=== PATIENT | female | born 1955 | race Asian ===

== ENCOUNTER → 2019-02-03 11:30 | Outpatient (CLI) | payer OTHER, SELFPAY ==
--- NOTE | 2019-02-03 | DI.MG.S_ITS ---
BILATERAL DIGITAL SCREENING MAMMOGRAM 3D/2D WITH CAD POST LUMPECTOMY: 02/03/2019 CLINICAL: Routine screening. Personal history of right breast cancer. Family history of breast cancer. Comparison is made to exams dated: 07/21/2017 mammogram, 07/08/2016 mammogram, and 07/03/2015 mammogram - [facility]. The tissue of both breasts is heterogeneously dense. This may lower the sensitivity of mammography. Current study was also evaluated with a Computer Aided Detection (CAD) system. There are benign post operative findings in the right breast. No significant masses, calcifications, or other findings are seen in either breast. There has been no significant interval change. IMPRESSION: There is no mammographic evidence of malignancy. A 1 year screening mammogram is recommended. This exam was interpreted at Station ID: [id number]. NOTE: For mammograms, a report in lay terms will be sent to the patient. Approximately 15% of breast malignancies will not be visualized mammographically. In the management of a palpable breast mass, a negative mammogram must not discourage biopsy of a clinically suspicious lesion. Electronically Signed By: Livia winston/karli:02/03/2019 13:34:15 letter sent: Normal Exam ACR BI-RADS Category 2: Benign Finding(s) 3342F
== END ==
PROVIDERS: Visit Provider Family Medicine
DX: Z12.31 Encounter for screening mammogram for malignant neoplasm of breast (principal); Z85.3 Personal history of malignant neoplasm of breast; Z80.3 Family history of malignant neoplasm of breast
CPT/HCPCS: 77063; 77067

== ENCOUNTER → 2020-05-30 11:49 | Outpatient (CLI) | payer OTHER, SELFPAY ==
--- NOTE | 2020-05-30 | DI.MG.S_ITS ---
BILATERAL DIGITAL SCREENING MAMMOGRAM 3D/2D WITH CAD POST LUMPECTOMY: 05/30/2020 CLINICAL: Routine screening. Personal history of left breast cancer. Family history of breast cancer. Comparison is made to exams dated: 02/03/2019 mammogram, 07/21/2017 mammogram, and 07/08/2016 mammogram - [facility]. The tissue of both breasts is heterogeneously dense. This may lower the sensitivity of mammography. Current study was also evaluated with a Computer Aided Detection (CAD) system. There are benign post operative findings in the right breast. No significant masses, calcifications, or other findings are seen in either breast. There has been no significant interval change. IMPRESSION: BENIGN There is no mammographic evidence of malignancy. A 1 year screening mammogram is recommended. This exam was interpreted at Station ID: [id number]. NOTE: For mammograms, a report in lay terms will be sent to the patient. Approximately 15% of breast malignancies will not be visualized mammographically. In the management of a palpable breast mass, a negative mammogram must not discourage biopsy of a clinically suspicious lesion. Electronically Signed By: Colby Francois acr/penrad:05/30/2020 12:44:59 letter sent: Normal Exam ACR BI-RADS Category 2: Benign Finding(s) 3342F
== END ==
PROVIDERS: Referring Provider Family Medicine; Visit Provider Family Medicine
DX: Z12.31 Encounter for screening mammogram for malignant neoplasm of breast (principal); Z85.3 Personal history of malignant neoplasm of breast; Z80.3 Family history of malignant neoplasm of breast
CPT/HCPCS: 77063; 77067

== ENCOUNTER → 2020-10-17 08:56 | Outpatient (CLI) | payer OTHER, SELFPAY ==
--- NOTE | 2020-10-17 08:58 | DI.MRI.S_ITS ---
PROCEDURE: MR ABDOMEN WO/W CON INDICATIONS: Other specified disorders of kidney and ureter TECHNIQUE: Coronal HASTE through abdomen and pelvis; axial 2D FLASH in- and [id number] (with and without fat saturation), and breath-hold T2 FSE from the hepatic dome to the bottom of the kidneys. Coronal HASTE MR urogram of kidneys and bladder. Dynamic coronal VIBE during IV gadolinium administration; postgadolinium axial VIBE or 2D FLASH with fat saturation from the hepatic dome through the kidneys. COMPARISON: Outside Film, CT, CT ABDOMEN RENAL PROTOCOL, 02/10/2019, 12:55. Outside Film, US, US RENAL COMPLETE, 08/05/2020, 9:28. Outside Film, CT, CT ABDOMEN RENAL PROTOCOL, 09/02/2020, 11:01. FINDINGS: Image quality: Excellent. Genitourinary system: There is an exophytic mass arising from the lateral aspect of the right kidney measuring 2.6 x 2.2 x 2.0 cm on series 14, image 53 and series 17, image 40. This demonstrates slightly heterogeneous predominantly hypointense signal on T2 and isointense to slightly hypointense signal on T1. There is internal enhancement following contrast administration. This appears similar in size compared to the prior CT of 02/10/2019 on which it measured approximately 2.5 x 2.1 x 1.9 cm. The mass demonstrates no definite adjacent organ invasion. No evidence of renal vein invasion. No additional renal mass lesions identified. No hydronephrosis. Other solid organs: The liver demonstrates heterogeneous signal dropout on [id number] imaging consistent with fatty infiltration. Gallbladder appears within normal limits without gallstones. No biliary ductal dilatation. Pancreas demonstrates no discrete mass. No pancreatic duct dilatation. The spleen is normal in size. No adrenal nodules. Nodes and vessels: No mesenteric or retroperitoneal lymphadenopathy within the visualized abdomen by size criteria. The aorta is normal in caliber. Bowel and peritoneum: Visualized bowel loops appear normal in caliber. No intra-abdominal free fluid. Lung bases: No basal pleural effusions. Heart size is borderline enlarged. Bones and soft tissues: Visualized osseous structures demonstrate no suspicious focal lesions. IMPRESSION: 1. Enhancing exophytic right renal mass likely represents a renal cell carcinoma. The findings appear similar in size compared to the prior study of 02/10/2019. Other differential considerations include an oncocytoma, which is considered less likely given the morphology, or metastatic disease, which is also considered less likely. 2. No evidence of adjacent organ invasion or renal vein invasion. 3. No evidence of metastatic disease in the abdomen. Dictated by: Dillan Chavarria M.D. on 10/17/2020 at 13:51 Approved by: Dillan Chavarria M.D. on 10/17/2020 at 14:04
== END ==
PROVIDERS: PCP Family Medicine; Referring Provider Urology; Visit Provider Urology
DX: N28.89 Other specified disorders of kidney and ureter (principal)
CPT/HCPCS: 74183; A9579

== ENCOUNTER → 2020-11-18 09:57 | Outpatient (CLI) | payer OTHER, SELFPAY ==
--- NOTE | 2020-11-18 | DI.NM.S_ITS ---
PROCEDURE: NM PARATHYROID SPECT RADIOPHARMACEUTICAL: 25.2 mCi Tc-99m sestamibi IV. INDICATIONS: Hyperparathyroidism, unspecified TECHNIQUE: After intravenous administration of Tc-99m sestamibi, anterior planar images of the neck and mediastinum were obtained at approximately 10 minutes and 2-3 hours. SPECT images were acquired after the 10 minute planar images. COMPARISON: None. FINDINGS: On the early images, the thyroid gland is bilobed and has normal size and morphology. There is subtle focal increased activity in the inferior left thyroid lobe. The delayed images show no preferential tracer retention in the thyroid bed to suggest parathyroid adenoma. The SPECT images demonstrate no abnormal activity in the neck. IMPRESSION: Subtle increased uptake in the inferior left thyroid lobe. On delayed images, there is no definitive preferential tracer retention in the area. A small parathyroid adenoma may be present. Please correlate with serum parathyroid hormone level. Recommend neck CT using parathyroid protocol for further evaluation if clinically indicated. Dictated by: Chantel Cash M.D. on 11/18/2020 at 13:52 Approved by: Chantel Cash M.D. on 11/18/2020 at 16:15
== END ==
PROVIDERS: PCP Family Medicine; Referring Provider Otolaryngology; Visit Provider Otolaryngology
DX: E21.3 Hyperparathyroidism, unspecified (principal)
CPT/HCPCS: 78071; A9500